=== PATIENT | female | born 1995 | race African-American/Black ===

== ENCOUNTER 2016-06-12 20:17 | Emergency (ER) | payer MEDICAID ==
[~2016-06-12] VITALS: Ht 167.6 cm; Wt 73.0 kg
[2016-06-12 20:46] VITALS: BP 114/61
== END 2016-06-13 00:15 | disposition left against medical advice (07) ==
LOC: ER 06-13 00:04
DX: Z53.21 Procedure and treatment not carried out due to patient leaving prior to being seen by health care provider (principal)
CPT/HCPCS: X7700; Z7610

== ENCOUNTER 2016-10-01 16:36 | Emergency (ER) | payer MEDICAID ==
[~2016-10-01] VITALS: Ht 167.6 cm; Wt 84.0 kg
[2016-10-01 16:51] VITALS: BP 124/64
== END 2016-10-02 01:46 | disposition left against medical advice (07) ==
LOC: ER 10-02 00:28
DX: Z53.21 Procedure and treatment not carried out due to patient leaving prior to being seen by health care provider (principal)

== ENCOUNTER 2016-10-02 03:38 | Emergency (ER) | payer MEDICAID ==
[~2016-10-02] VITALS: Ht 167.6 cm; Wt 73.0 kg
[2016-10-02 06:51] LABS: BASOPHILS % 0.7 % (0.0-2.0); EOSINOPHILS % 2.7 % (0.0-5.0); HEMATOCRIT. 38.7 % (36.0-48.0); HEMOGLOBIN. 13.2 g/dL (12.0-16.0); LYMPHOCYTES % 18.6 % (20.0-50.0); MEAN CORPUSCULAR HEMOGLOBIN 31.6 pg (28.0-32.0); MEAN CORPUSCULAR VOLUME 92.3 fL (81.0-99.0); MEAN PLATELET VOLUME 9.6 fl (7.4-10.4); MONOCYTES % 9.5 % (2.0-8.0); NEUTROPHILS % 68.5 % (40.0-76.0); PLATELET 169 x1000/uL (130-400); RED BLOOD CELL COUNT 4.19 mill/uL (4.2-5.4); RED CELL DISTRIBUTION WIDTH 13.7 % (11.6-14.6)
[2016-10-02 06:57] LABS: CLARITY URINE CLEAR (CLEAR); COLOR URINE YELLOW (YELLOW); GLUCOSE URINE NEGATIVE (NEGATIVE); KETONES URINE NEGATIVE (NEGATIVE); LEUKOCYTE ESTERASE URINE NEGATIVE (NEGATIVE); NITRITE URINE NEGATIVE (NEGATIVE); OCCULT BLOOD URINE 1+ (NEGATIVE); PH URINE 6.5 (4.5-8.0); PROTEIN URINE NEGATIVE (NEGATIVE); SPECIFIC GRAVITY URINE 1.009 (1.005-1.030); UROBILINOGEN URINE 0.2 E.U./dL (0.2-1.0)
[2016-10-02 07:12] LABS: CARBON DIOXIDE 26 mEq/L (21-32); CHLORIDE 107 mEq/L (98-107)
[2016-10-02 07:23] LABS: B-HCG QUANTITATIVE 46243 mIU/mL (<3)
[2016-10-02 07:26] VITALS: BP 110/63
== END 2016-10-02 09:30 | disposition home or self-care (01) ==
LOC: ER 06:25
DX: O26.891 Other specified pregnancy related conditions, first trimester (principal); M19.90 Unspecified osteoarthritis, unspecified site; Z3A.10 10 weeks gestation of pregnancy; Z88.1 Allergy status to other antibiotic agents
CPT/HCPCS: 36415; 76801; 80048; 81001; 81025; 84702; 85025; 99285

== ENCOUNTER 2017-04-17 01:21 | Observation (INO) | payer MEDICAID ==
[~2017-04-17] VITALS: Ht 165.1 cm; Wt 86.6 kg
[~2017-04-17 01:21] MED LIST: PNV1TABL76 PO
[2017-04-17 03:19] LABS: CLARITY URINE CLEAR (CLEAR); COLOR URINE YELLOW (YELLOW); KETONES URINE 2+ (NEGATIVE); LEUKOCYTE ESTERASE URINE TRACE (NEGATIVE); NITRITE URINE NEGATIVE (NEGATIVE); OCCULT BLOOD URINE NEGATIVE (NEGATIVE); PH URINE 6.5 (4.5-8.0); PROTEIN URINE NEGATIVE (NEGATIVE); SPECIFIC GRAVITY URINE 1.016 (1.005-1.030)
[2017-04-17] MEDS ORDERED: LACTATED RINGERS 1,000 ML IV SCH (03:45)
[2017-04-17] MEDS ORDERED: ACETAMINOPHEN 500MG TABLET PO SCH (03:45)
== END 2017-04-17 06:00 | disposition home or self-care (01) ==
LOC: L&D 01:21
PROVIDERS: ADMIT Obstetrics & Gynecology; ATTEND Obstetrics & Gynecology
DX: O99.89 Other specified diseases and conditions complicating pregnancy, childbirth and the puerperium (principal); M54.5 Low back pain; O26.893 Other specified pregnancy related conditions, third trimester; R10.2 Pelvic and perineal pain; Z3A.39 39 weeks gestation of pregnancy
CPT/HCPCS: 81003; 99281; G0378; J7120; 96360; 96361

== ENCOUNTER 2018-06-02 03:53 | Emergency (ER) | payer MEDICAID ==
[~2018-06-02] VITALS: Ht 167.6 cm; Wt 79.0 kg
[2018-06-02] MEDS ORDERED: IBUPROFEN 600MG TABLET PO ONE (06:45)
[2018-06-02 08:44] VITALS: BP 110/60
== END 2018-06-02 09:03 | disposition home or self-care (01) ==
LOC: ER 03:53
DX: M25.512 Pain in left shoulder (principal); M54.5 Low back pain; F17.200 Nicotine dependence, unspecified, uncomplicated; Y08.89XA Assault by other specified means, initial encounter
CPT/HCPCS: 73030; 81025; 99283; Z7610

== ENCOUNTER 2018-07-05 09:55 | Emergency (ER) | payer MEDICAID ==
[~2018-07-05] VITALS: Ht 165.1 cm; Wt 67.0 kg
[2018-07-05 09:58] VITALS: BP 104/73
[2018-07-05] MEDS ORDERED: ALBUTEROL (0.083%) 2.5MG/3ML NEB HHN ONE (10:45)
== END 2018-07-05 11:50 | disposition home or self-care (01) ==
LOC: ER 09:55
DX: T17.890A Other foreign object in other parts of respiratory tract causing asphyxiation, initial encounter (principal); M94.0 Chondrocostal junction syndrome [Tietze]; F12.10 Cannabis abuse, uncomplicated; Z88.0 Allergy status to penicillin; X58.XXXA Exposure to other specified factors, initial encounter; Y93.89 Activity, other specified; Y92.89 Other specified places as the place of occurrence of the external cause; Y99.8 Other external cause status
CPT/HCPCS: 71045; 81025; 94640; 99283; J7611

== ENCOUNTER 2018-08-06 12:02 | Emergency (ER) | payer MEDICAID ==
[~2018-08-06] VITALS: Ht 165.1 cm; Wt 72.7 kg
[2018-08-06 12:46] VITALS: BP 143/68
== END 2018-08-06 14:35 | disposition left against medical advice (07) ==
LOC: ER 12:02
DX: Z53.21 Procedure and treatment not carried out due to patient leaving prior to being seen by health care provider (principal)

== ENCOUNTER 2018-08-06 17:35 | Emergency (ER) | payer MEDICAID ==
[~2018-08-06] VITALS: Ht 165.1 cm; Wt 73.1 kg
[2018-08-06] MEDS ORDERED: BACITRACIN ZINC OINT UDPKT TOP ONE (21:15)
[2018-08-06] MEDS ORDERED: IBUPROFEN 800MG TABLET PO ONE (21:15)
[2018-08-06] MEDS ORDERED: FAMOTIDINE 20MG TABLET PO ONE (21:15)
[2018-08-06] MEDS ORDERED: PREDNISONE 20MG TABLET PO ONE (21:15)
[2018-08-06 21:31] VITALS: BP 126/77
== END 2018-08-06 21:35 | disposition home or self-care (01) ==
LOC: ER 17:35
DX: S50.362A Insect bite (nonvenomous) of left elbow, initial encounter (principal); S80.262A Insect bite (nonvenomous), left knee, initial encounter; S80.261A Insect bite (nonvenomous), right knee, initial encounter; S90.562A Insect bite (nonvenomous), left ankle, initial encounter; J45.909 Unspecified asthma, uncomplicated; F12.10 Cannabis abuse, uncomplicated; F17.210 Nicotine dependence, cigarettes, uncomplicated; Z88.0 Allergy status to penicillin; W57.XXXA Bitten or stung by nonvenomous insect and other nonvenomous arthropods, initial encounter; Y93.89 Activity, other specified; Y92.89 Other specified places as the place of occurrence of the external cause
CPT/HCPCS: 99283; J7512

== ENCOUNTER 2018-09-12 02:14 | Emergency (ER) | payer MEDICAID ==
[~2018-09-12] VITALS: Ht 165.1 cm; Wt 74.0 kg
[2018-09-12] MEDS ORDERED: PREDNISONE 20MG TABLET PO ONE (04:15)
[2018-09-12] MEDS ORDERED: FAMOTIDINE 20MG TABLET PO ONE (04:15)
[2018-09-12 04:22] VITALS: BP 136/74
== END 2018-09-12 04:23 | disposition home or self-care (01) ==
LOC: ER 02:14
DX: S80.862A Insect bite (nonvenomous), left lower leg, initial encounter (principal); S80.861A Insect bite (nonvenomous), right lower leg, initial encounter; J45.909 Unspecified asthma, uncomplicated; F17.210 Nicotine dependence, cigarettes, uncomplicated; W57.XXXA Bitten or stung by nonvenomous insect and other nonvenomous arthropods, initial encounter; Y93.9 Activity, unspecified; Y92.9 Unspecified place or not applicable; Z88.3 Allergy status to other anti-infective agents
CPT/HCPCS: 99283; J7512

== ENCOUNTER 2019-02-11 10:31 | Emergency (ER) | payer MEDICAID ==
[~2019-02-11] VITALS: Ht 172.7 cm; Wt 72.0 kg
[2019-02-11 11:18] LABS: CLARITY URINE CLEAR (CLEAR); COLOR URINE YELLOW (YELLOW); KETONES URINE NEGATIVE (NEGATIVE); LEUKOCYTE ESTERASE URINE TRACE (NEGATIVE); NITRITE URINE NEGATIVE (NEGATIVE); OCCULT BLOOD URINE TRACE (NEGATIVE); PH URINE 6.5 (4.5-8.0); PROTEIN URINE NEGATIVE (NEGATIVE); SPECIFIC GRAVITY URINE 1.011 (1.005-1.030); UROBILINOGEN URINE 0.2 E.U./dL (0.2-1.0)
[2019-02-11 11:54] LABS: BASOPHILS % 0.6 % (0.0-2.0); EOSINOPHILS % 1.6 % (0.0-5.0); HEMATOCRIT. 43.1 % (36.0-48.0); HEMOGLOBIN. 14.3 g/dL (12.0-16.0); LYMPHOCYTES % 18.3 % (20.0-50.0); MEAN CORPUSCULAR HEMOGLOBIN 30.8 pg (28.0-32.0); MEAN CORPUSCULAR VOLUME 92.8 fL (81.0-99.0); MEAN PLATELET VOLUME 9.8 fl (7.4-10.4); MONOCYTES % 5.1 % (2.0-8.0); NEUTROPHILS % 74.4 % (40.0-76.0); PLATELET 215 x1000/uL (130-400); RED BLOOD CELL COUNT 4.65 mill/uL (4.2-5.4); RED CELL DISTRIBUTION WIDTH 13.3 % (11.6-14.6)
[2019-02-11 12:00] LABS: CHLORIDE 109 mEq/L (98-107)
[2019-02-11 12:39] LABS: B-HCG QUANTITATIVE 45289 mIU/mL (<3)
[2019-02-11 13:10] VITALS: BP 120/60
== END 2019-02-11 13:10 | disposition home or self-care (01) ==
LOC: ER 10:31
DX: O23.42 Unspecified infection of urinary tract in pregnancy, second trimester (principal); O26.892 Other specified pregnancy related conditions, second trimester; J45.909 Unspecified asthma, uncomplicated; Z3A.16 16 weeks gestation of pregnancy; Z88.0 Allergy status to penicillin
CPT/HCPCS: 36415; 76805; 81003; 81025; 84702; 86850; 86900; 99284

== ENCOUNTER 2019-04-29 10:27 | Observation (INO) | payer MEDICAID ==
[~2019-04-29] VITALS: Ht 167.6 cm; Wt 89.8 kg
[2019-04-29] MEDS ORDERED: TERBUTALINE SULFATE 1MG/ML VIAL SUBCUT NR (11:45)
[2019-04-29] MEDS ORDERED: SODIUM CHLORIDE 0.9% 1,000 ML IV SCH (11:45)
[2019-04-29 12:02] LABS: CLARITY URINE CLEAR (CLEAR); COLOR URINE YELLOW (YELLOW); KETONES URINE NEGATIVE (NEGATIVE); LEUKOCYTE ESTERASE URINE TRACE (NEGATIVE); NITRITE URINE NEGATIVE (NEGATIVE); OCCULT BLOOD URINE NEGATIVE (NEGATIVE); PROTEIN URINE NEGATIVE (NEGATIVE); SPECIFIC GRAVITY URINE 1.017 (1.005-1.030); UROBILINOGEN URINE 0.2 E.U./dL (0.2-1.0)
[2019-04-29 12:33] LABS: *BARBITURATES SCREEN URINE NEGATIVE (NEGATIVE); *BENZODIAZEPINES SCREEN URINE NEGATIVE (NEGATIVE); *COCAINE SCREEN URINE NEGATIVE (NEGATIVE); METHADONE URINE SCREEN NEGATIVE (NEGATIVE); OPIATES URINE SCREEN NEGATIVE (NEGATIVE)
[2019-04-29 12:34] LABS: PHENCYCLIDINE URINE SCREEN NEGATIVE (NEGATIVE)
[2019-04-29 12:45] LABS: *AMPHETAMINES SCREEN URINE PRESUMTIVE POSITIVE (NEGATIVE); CANNABINOID URINE SCREEN PRESUMTIVE POSITIVE (NEGATIVE)
[2019-05-03 13:11] LABS: AMPHETAMINE CONF URINE Positive (.); CANNABINOID CONFIRMATION URINE Positive (.)
== END 2019-04-29 13:00 | disposition home or self-care (01) ==
LOC: 8 EST LDRP 10:27
PROVIDERS: ADMIT Specialist; ATTEND Specialist
DX: O26.892 Other specified pregnancy related conditions, second trimester (principal); R10.9 Unspecified abdominal pain; Z3A.26 26 weeks gestation of pregnancy
CPT/HCPCS: 80305; 80307; 80349; 81003; 82731; 96372; 99281; G0378; J3105; 96360; 96361

== ENCOUNTER 2019-09-05 17:16 | Emergency (ER) | payer MEDICAID ==
[~2019-09-05] VITALS: Ht 165.1 cm; Wt 75.0 kg
[2019-09-05 19:30] VITALS: BP 122/72
[2019-09-05 19:35] LABS: EOSINOPHILS % 8.7 % (0.0-5.0); HEMATOCRIT. 44.2 % (36.0-48.0); HEMOGLOBIN. 14.8 g/dL (12.0-16.0); LYMPHOCYTES % 34.1 % (20.0-50.0); MEAN CORPUSCULAR VOLUME 92.4 fL (81.0-99.0); MEAN PLATELET VOLUME 9.9 fl (7.4-10.4); MONOCYTES % 8.6 % (2.0-8.0); NEUTROPHILS % 47.6 % (40.0-76.0); PLATELET 171 x1000/uL (130-400); RED BLOOD CELL COUNT 4.78 mill/uL (4.2-5.4); RED CELL DISTRIBUTION WIDTH 13.7 % (11.6-14.6)
[2019-09-05 19:43] LABS: CHLORIDE 110 mEq/L (98-107)
[2019-09-05 19:53] LABS: CLARITY URINE CLEAR (CLEAR); COLOR URINE YELLOW (YELLOW); KETONES URINE NEGATIVE (NEGATIVE); LEUKOCYTE ESTERASE URINE 2+ (NEGATIVE); NITRITE URINE NEGATIVE (NEGATIVE); OCCULT BLOOD URINE 1+ (NEGATIVE); PH URINE 5.5 (4.5-8.0); PROTEIN URINE NEGATIVE (NEGATIVE); SPECIFIC GRAVITY URINE 1.019 (1.005-1.030)
[2019-09-05 19:54] LABS: B-HCG QUANTITATIVE < 1 mIU/mL (<3)
[2019-09-05] MEDS ORDERED: KETOROLAC 60MG/2ML VIAL IM ONE (23:30)
== END 2019-09-06 00:03 | disposition home or self-care (01) ==
LOC: ER 17:16
DX: N39.0 Urinary tract infection, site not specified (principal); J45.909 Unspecified asthma, uncomplicated; Z88.1 Allergy status to other antibiotic agents
CPT/HCPCS: 36415; 76830; 76856; 80053; 81003; 81025; 84702; 85025; 86850; 86870; 86900; 86901; 96372; 99284; J1885

== ENCOUNTER 2019-10-10 21:20 | Emergency (ER) | payer MEDICAID ==
[~2019-10-10] VITALS: Ht 167.6 cm; Wt 84.4 kg
[2019-10-10] MEDS: HYDROCODONE/ACETAMINOPHEN 5/325MG TABLET PO ONE ×2 (23:04→23:08)
[2019-10-10 23:08] VITALS: BP 137/82
[2019-10-11] MEDS ORDERED: ACETAMINOPHEN 325MG TABLET PO ONE
== END 2019-10-11 01:08 | disposition home or self-care (01) ==
LOC: ER 21:23
DX: S09.8XXA Other specified injuries of head, initial encounter (principal); S13.9XXA Sprain of joints and ligaments of unspecified parts of neck, initial encounter; W22.8XXA Striking against or struck by other objects, initial encounter; Y93.89 Activity, other specified; Y92.89 Other specified places as the place of occurrence of the external cause; Y99.8 Other external cause status; J45.909 Unspecified asthma, uncomplicated; Z88.0 Allergy status to penicillin
CPT/HCPCS: 81025; 99284

== ENCOUNTER 2019-10-12 23:54 | Emergency (ER) | payer MEDICAID ==
[~2019-10-12] VITALS: Ht 167.6 cm; Wt 85.0 kg
[2019-10-13] MEDS ORDERED: KETOROLAC 60MG/2ML VIAL IM ONE (00:30)
[2019-10-13 01:09] VITALS: BP 123/78
== END 2019-10-13 01:09 | disposition home or self-care (01) ==
LOC: ER 23:54
DX: S16.1XXA Strain of muscle, fascia and tendon at neck level, initial encounter (principal); V49.49XA Driver injured in collision with other motor vehicles in traffic accident, initial encounter; Y93.89 Activity, other specified; Y92.89 Other specified places as the place of occurrence of the external cause; Y99.8 Other external cause status; Z88.0 Allergy status to penicillin; J45.909 Unspecified asthma, uncomplicated
CPT/HCPCS: 96372; 99283; J1885

== ENCOUNTER 2021-07-01 05:41 | Emergency (ER) | payer MEDICAID ==
[~2021-07-01] VITALS: Ht 162.6 cm; Wt 86.2 kg
[2021-07-01] MEDS ORDERED: ACETAMINOPHEN 325MG TABLET PO ONE (06:45)
[2021-07-01 08:13] LABS: BASOPHILS % 0.5 % (0.0-2.0); EOSINOPHILS % 1.1 % (0.0-5.0); HEMATOCRIT. 36.4 % (36.0-48.0); HEMOGLOBIN. 12.4 g/dL (12.0-16.0); LYMPHOCYTES % 13.2 % (20.0-50.0); MEAN CORPUSCULAR HEMOGLOBIN 31.6 pg (28.0-32.0); MEAN CORPUSCULAR VOLUME 92.9 fL (81.0-99.0); MEAN PLATELET VOLUME 9.6 fl (7.4-10.4); MONOCYTES % 5.5 % (2.0-8.0); NEUTROPHILS % 79.7 % (40.0-76.0); PLATELET 218 x1000/uL (130-400); RED BLOOD CELL COUNT 3.92 mill/uL (4.2-5.4); RED CELL DISTRIBUTION WIDTH 13.7 % (11.6-14.6)
[2021-07-01 08:21] LABS: CHLORIDE 110 mEq/L (98-107)
[2021-07-01 08:43] LABS: B-HCG QUANTITATIVE 46032 mIU/mL (<3)
[2021-07-01] MEDS ORDERED: TOPUD PO (09:21)
[2021-07-01] MEDS ORDERED: PNV1TABL50 PO (09:21)
[2021-07-01 09:46] VITALS: BP 121/76
== END 2021-07-01 09:48 | disposition home or self-care (01) ==
LOC: ER 05:41
DX: O26.892 Other specified pregnancy related conditions, second trimester (principal); M25.552 Pain in left hip; J45.909 Unspecified asthma, uncomplicated; Z3A.24 24 weeks gestation of pregnancy; Z88.3 Allergy status to other anti-infective agents; Z91.018 Allergy to other foods
CPT/HCPCS: 36415; 76805; 80053; 81025; 84702; 85025; 86850; 86900; 99284

== ENCOUNTER 2024-03-20 11:15 | Emergency (ER) | payer MEDICAID, OTHER ==
[~2024-03-20] VITALS: Ht 167.6 cm; Wt 90.7 kg
[~2024-03-20 11:15] MED LIST changes: +PNV1TABL50 PO; +TOPUD PO
[2024-03-20 11:19] VITALS: TEMP 98.5; O2SAT 100
[2024-03-20 12:56] LABS: EOSINOPHILS % 2.6 % (0.0-5.0); HEMATOCRIT. 42.8 % (36.0-48.0); HEMOGLOBIN. 13.7 g/dL (12.0-16.0); LYMPHOCYTES % 47.7 % (20.0-50.0); MEAN CORPUSCULAR HEMOGLOBIN 29.5 pg (28.0-32.0); MEAN CORPUSCULAR VOLUME 92.2 fL (81.0-99.0); MONOCYTES % 6.4 % (2.0-8.0); NEUTROPHILS % 42.3 % (40.0-76.0); PLATELET 216 x1000/uL (130-400); RED BLOOD CELL COUNT 4.64 mill/uL (4.2-5.4); RED CELL DISTRIBUTION WIDTH 13.6 % (11.6-14.6); WHITE BLOOD COUNT 7.3 x1000/uL (4.5-11.0)
[2024-03-20 13:05] LABS: CHLORIDE 109 mEq/L (98-107); POTASSIUM 4.1 mEq/L (3.5-5.1); SODIUM 142 mEq/L (136-145)
[2024-03-20 13:06] LABS: CALCIUM 9.5 mg/dL (8.7-10.4); CARBON DIOXIDE 26 mEq/L (21-32)
[2024-03-20 13:11] LABS: GLUCOSE 88 mg/dL (70-105); UREA NITROGEN BLOOD 12 mg/dL (9-23)
[2024-03-20 16:15] LABS: ALANINE AMINOTRANSFERASE 32 IU/L (10-49); ALBUMIN 4.2 g/dL (3.2-4.8); ASPARTATE AMINOTRANSFERASE 36 IU/L (<34); BILIRUBIN DIRECT 0.2 mg/dL (<=3.0); BILIRUBIN TOTAL 0.8 mg/dL (0.1-1.0); PROTEIN TOTAL 6.4 g/dL (6.0-8.3)
[2024-03-20 16:20] LABS: HCG SCREEN NEGATIVE
[2024-03-20 18:48] VITALS: BP 137/85; PULSE 80; RESP 17; O2SAT 99
== END 2024-03-20 18:49 | disposition home or self-care (01) ==
LOC: ER 11:23
DX: B34.9 Viral infection, unspecified (principal); J45.909 Unspecified asthma, uncomplicated; F10.90 Alcohol use, unspecified, uncomplicated; Z88.0 Allergy status to penicillin; Y90.9 Presence of alcohol in blood, level not specified
CPT/HCPCS: 80076; 80048; 81025; 84703; 83690; 85025; 36415; 71045; 99284; Z7610; A4606

== ENCOUNTER 2024-05-07 21:35 | Emergency (ER) | payer MEDICAID, OTHER ==
[~2024-05-07] VITALS: Ht 167.6 cm; Wt 91.0 kg
[2024-05-07 21:44] VITALS: O2SAT 99
[2024-05-07] MEDS ORDERED: ACET-2708 MT (22:51)
[2024-05-07] MEDS: ACETAMINOPHEN 500MG TABLET PO ONE (23:00)
[2024-05-07 23:50] VITALS: BP 149/68; PULSE 83; RESP 16; TEMP 36.7; O2SAT 99
== END 2024-05-07 23:50 | disposition home or self-care (01) ==
LOC: ER 21:35
DX: K42.9 Umbilical hernia without obstruction or gangrene (principal); J45.909 Unspecified asthma, uncomplicated; Z79.899 Other long term (current) drug therapy; Z88.0 Allergy status to penicillin
CPT/HCPCS: 99282

== ENCOUNTER 2024-05-16 15:50 | Emergency (ER) | payer OTHER, MEDICAID ==
[~2024-05-16] VITALS: Ht 167.6 cm; Wt 96.2 kg
[~2024-05-16 15:50] MED LIST changes: +ACET-2708 MT
[2024-05-16 15:56] VITALS: O2SAT 100
[2024-05-16] MEDS ORDERED: ALBU18HF2 IH (19:04)
[2024-05-16 19:24] VITALS: BP 128/80; PULSE 92; RESP 16; TEMP 36.8; O2SAT 100
== END 2024-05-16 19:34 | disposition home or self-care (01) ==
LOC: ER 15:50
DX: Z00.8 Encounter for other general examination (principal); J45.909 Unspecified asthma, uncomplicated; Z79.899 Other long term (current) drug therapy; Z88.0 Allergy status to penicillin; Z91.018 Allergy to other foods
CPT/HCPCS: 87420; 99283; Z7610 ×2

== ENCOUNTER 2024-12-09 01:16 | Emergency (ER) | payer MEDICAID, OTHER ==
[~2024-12-09] VITALS: Ht 167.6 cm; Wt 87.2 kg
[~2024-12-09 01:16] MED LIST changes: +ALBU18HF2 IH
[2024-12-09 01:26] VITALS: BP 151/73; TEMP 37.1; O2SAT 100
[2024-12-09 01:27] VITALS: PULSE 89; RESP 16; O2SAT 99
[2024-12-09] MEDS: KETOROLAC 30MG/ML VIAL IM ONE (05:10)
[2024-12-09] MEDS ORDERED: DEXAMETHASONE 1 MG/ML ORAL SYR PO ONE (06:15)
[2024-12-09] MEDS: DEXAMETHASONE 10 MG/ML VIAL PO NR (06:24)
[2024-12-09 06:45] LABS: BASOPHILS % 0.9 % (0.0-2.0); EOSINOPHILS % 0.9 % (0.0-5.0); HEMATOCRIT. 41.4 % (36.0-48.0); HEMOGLOBIN. 13.3 g/dL (12.0-16.0); LYMPHOCYTES % 20.4 % (20.0-50.0); MEAN PLATELET VOLUME 9.5 fl (7.4-10.4); MONOCYTES % 7.3 % (2.0-8.0); NEUTROPHILS % 70.5 % (40.0-76.0); PLATELET 234 x1000/uL (130-400); RED BLOOD CELL COUNT 4.46 mill/uL (4.2-5.4); RED CELL DISTRIBUTION WIDTH 14.2 % (11.6-14.6)
[2024-12-09 07:07] LABS: CREATININE 0.9 mg/dL (0.6-1.0)
[2024-12-09 07:08] LABS: UREA NITROGEN BLOOD 10 mg/dL (9-23)
[2024-12-09 07:09] LABS: ASPARTATE AMINOTRANSFERASE 17 IU/L (<34); BILIRUBIN DIRECT 0.2 mg/dL (<=3.0); BILIRUBIN TOTAL 0.6 mg/dL (0.1-1.0)
[2024-12-09 07:10] LABS: PROTEIN TOTAL 6.9 g/dL (6.0-8.3)
[2024-12-09] MEDS ORDERED: PENI500T MT (08:14)
[2024-12-09] MEDS ORDERED: KETO10TA2 MT (08:14)
== END 2024-12-09 08:22 | disposition home or self-care (01) ==
LOC: ER 01:16
DX: J02.0 Streptococcal pharyngitis (principal); J45.909 Unspecified asthma, uncomplicated; R51.9 Headache, unspecified; Z88.0 Allergy status to penicillin
CPT/HCPCS: 80076; 80048; 81025; 85025; 36415; 70491; 96372; 99285; Q9967; J1100; J1885; Z7610 ×3; J8540